=== PATIENT | female | born 1965 | race African-American/Black ===

== ENCOUNTER 2019-04-23 17:40 | Emergency (ER) | payer OTHER ==
[2019-04-23 17:47] VITALS: TEMP 98.4; BMI 51.2
[2019-04-23] MEDS ORDERED: ACETAMINOPHEN 1000 MG/100 ML VIAL (NON FORMULARY) IVPB ONE (18:35)
--- NOTE | 2019-04-23 18:38 | PDOC ---
History of Present Illness - General Chief Complaint: Pain Stated Complaint: WEAKNES,CRAMPS Time Seen by Provider: 04/23/19 18:11 - History of Present Illness Initial Comments: 53F PMH HTN c/o 2 days of cramping nonradiating constant lower abd pain worse w / urinating associated w/ nausea, nbnb vomiting, and PO intolerance. No f/c, cp/ sob, diarrhea, vaginal discharge. No prior abd surgeries, no recent abx. PCN allergy Past History - Past Medical History Allergies/Adverse Reactions: Allergies Allergy/AdvReac Type Severity Reaction Status Date / Time Penicillins Allergy Verified 04/23/19 17:47 COPD: No HTN: Yes Other medical history: ARTHRITIS - Psycho Social/Smoking Cessation Hx Smoking History: Current every day smoker Number of Cigarettes Smoked Daily: 5 Information on smoking cessation initiated: No Review of Systems - Review of Systems Able to Perform ROS?: Yes Comments:: CONSTITUTIONAL: Denies F / C HEENT: Denies headache, lightheadedness, dizziness, changes in vision / hearing RESP: Denies SOB CARD: Denies chest pain, palpitations GI: Endorses abd pain, n/v. Denies D, bloody stool : Denies dysuria, hematuria, frequency SKIN: Denies rashes NEURO: Denies numbness, tingling, weakness MSK: Denies back pain *Physical Exam - Vital Signs Last Vital Signs Temp Pulse Resp BP Pulse Ox 98.4 F 79 18 157/89 98 04/23/19 17:43 04/23/19 17:43 04/23/19 17:43 04/23/19 17:43 04/23/19 17:43 - Physical Exam GEN: NAD. AAOx3 HEENT: NC/AT. No facial asymmetry. Moist mucous membranes, upper dentures. Normal voice. Supple neck w/ FROM. CV: S1/S2, RRR, no m/r/g LUNG: CTAB, no wheezes, crackles, rales, rhonchi. GI: +TTP of the lower quadrants otherwise soft, nondistended, +BS, no guarding, no rebound. No masses. Neg CVAT b/l. EXTREMITIES: No obvious deformities of all extremities. SKIN: warm, dry, normal turgor PSYCH: normal mood and affect NEURO: Moving all extremities well. Ambulates w/ normal gait. ED Treatment Course - LABORATORY CBC & Chemistry Diagram: 04/23/19 19:15 04/23/19 19:15 Medical Decision Making - Medical Decision Making 04/23/19 18:35 53F c/o constant crampy nonradiating lower abdominal pain w/ n/v and po intolerance. - CBC, CMP, lipase - UA, UC, Preg - Zofran, pain ctrl, fluids 04/23/19 20:40 ALK Phos elevated Otherwise labs reassuring UA neg 04/23/19 21:42 pt refused PO challenge rpt abd exam pt states RLQ hurts more than every other area on palpation CT A/P 04/23/19 21:50 Informed by RN that pt is refusing medications 04/23/19 23:24 ED team involved in code, informed by RN that pt wanted to leave and could not wait. RN removed IV and pt left. 04/23/19 23:30 CT report shows dilated biliary system, recommended GI f/u Attempted to contact pt via phone numbers in system, no response. Eloped. Discharge - Discharge Information Problems reviewed: Yes Clinical Impression/Diagnosis: Abdominal pain Qualifiers: Abdominal location: unspecified location Qualified Code(s): R10.9 - Unspecified abdominal pain Condition: Unchanged/Unknown Disposition: ELOPED - Follow up/Referral Referrals: [facility] [place] Internal Med at [place] [Provider Group] - Patient Discharge Instructions Patient Printed Discharge Instructions: DI for Abdominal Pain-Adult Additional Instructions: Take tylenol for pain as directed by the label. Slowly start eating and drinking. Follow up with primary care in the next 7-14 days regarding your symptoms. We are referring you to the [facility] for primary care. You can call the number below to schedule an appointment. Return to the emergency department if you experience worsening symptoms, symptoms persisting for more than 3 days, inability to eat or drink, high fevers , anything that concerns you. - Post Discharge Activity
[2019-04-23] MEDS ORDERED: ONDANSETRON 4 MG/2 ML VIAL IVPUSH ONE (19:04)
[2019-04-23] MEDS ORDERED: FAMOTIDINE 20 MG/50 ML IVPB 20 MG/50 ML MG IVPB ONE ×2 (19:04→19:23)
[2019-04-23 19:22] LABS: PH,URINE 6.5 (5.0-8.0); URINE APPEARANCE CLEAR; URINE BILIRUBIN NEGATIVE (NEGATIVE); URINE COLOR YELLOW; URINE GLUCOSE (UA) NEGATIVE (NEGATIVE); URINE KETONE NEGATIVE (NEGATIVE); URINE LEUK ESTERASE NEGATIVE (NEGATIVE); URINE NITRITE NEGATIVE (NEGATIVE); URINE PROTEIN NEGATIVE (NEGATIVE)
[2019-04-23] MEDS ORDERED: ACETAMINOPHEN INJECTION 100 ML IVPB ONE (19:23)
[2019-04-23] MEDS ORDERED: ONDANSETRON 4 MG/2 ML VIAL ONE (19:23)
--- NOTE | 2019-04-23 19:23 | PDOC ---
Documentation entered by Zhanna Alonzo SCRIBE, acting as scribe for Anel Mallory DO. Anel Mallory DO: This documentation has been prepared by the lenore, Zhanna Alonzo SCRIBE, under my direction and personally reviewed by me in its entirety. I confirm that the documentation accurately reflects all work, treatment, procedures, and medical decision making performed by me. Attending Attestation - Resident Resident Name: Basil Pepe - ED Attending Attestation I have performed the following: I have examined & evaluated the patient, The case was reviewed & discussed with the resident, I agree w/resident's findings & plan, Exceptions are as noted - HPI HPI: 04/23/19 20:18 53yo female with hx of htn, arthritis with n/v/d since yesterday. Pt states subjective fevers at home. No rhinorrhea or sore throat. No cp/sob/cough. States cramping in her abd. Pt states her daughter is also sick with similar symptoms. Pt denies dysuria. Pt states vomitus was nbnb. Pt states she feels weak from not eating or drinking x 1 day. Pt denies abd distension. Pt ambulated into the ED and is nontoxic in appearance. - Physicial Exam PE: 04/23/19 19:18 Gen: aaox3, nad heart: +s1s2 reg lungs: cta b/l abd: soft, mild diffuse ttp, no rebound or guarding, obese ext: no c/c/e, ambulatory with a steady gait - Medical Decision Making 04/23/19 19:19 a/p: 53yo female with n/v/d since yesterday -daughter at home with similar symptoms -pt states 2 episodes nbnb vomitus -suspect viral syndrome -will send labs, hydrate, zofran, pepcid -will monitor and reassess -afebrile -pt is ambulatory in the ER -pt is nontoxic in appearance 04/23/19 20:18 labs reviewed no acute abnl 04/23/19 21:41 pt now with pain localized to RLQ will send for ct 04/23/19 23:25 pt left after the ct the nurse removed the iv and the patient walked out the patient was not discharged from the ER 04/23/19 23:26 mild intrahepatic ductal dilatation on the ct was seen 04/23/19 23:26 resident to call the patient to discuss ct findings 04/23/19 23:31 no answer at either number
[2019-04-23] MEDS: SODIUM CHLORIDE 0.9% 1000 ML INFUS.BAG IV ONE ×4 (19:29→21:52)
[2019-04-23 19:57] LABS: BASO % 0.8 % (0-2.0); EOS % 0.8 % (0-4.5); HEMATOCRIT 43.5 % (32.4-45.2); HEMOGLOBIN 14.3 GM/dL (10.7-15.3); LYMPH % 24.5 % (8-40); MCH 30.9 pg (25.7-33.7); MEAN CELL VOLUME 93.9 fl (80-96); NEUT % 67.9 % (42.8-82.8); PLATELET COUNT 285 K/MM3 (134-434); RBC 4.63 M/mm3 (3.60-5.2); RDW 13.3 % (11.6-15.6); WHITE BLOOD COUNT 7.9 K/mm3 (4.0-10.0)
[2019-04-23 20:14] LABS: ALBUMIN 3.5 g/dl (3.4-5.0); BILIRUBIN,TOTAL 0.2 mg/dL (0.2-1); CALCIUM 9.4 mg/dL (8.5-10.1); CREATININE 0.7 mg/dL (0.55-1.3); POTASSIUM 4.4 mmol/L (3.5-5.1); TOT PROT 8.3 g/dl (6.4-8.2)
[2019-04-23] MEDS ORDERED: HYOSCYAMINE SULFATE 0.125 MG *ODT PO ONE (21:36)
[2019-04-23] MEDS ORDERED: KETOROLAC TROMETHAMINE 15 MG/ML VIAL ONE (21:39)
[2019-04-23] MEDS: KETOROLAC TROMETHAMINE 15 MG/ML VIAL IVPUSH ONE ×2 (21:43→21:50)
[2019-04-24 05:27] VITALS: BP 153/82; PULSE 73
== END 2019-04-23 23:36 | disposition left against medical advice (07) ==
LOC: JER 17:40
PROC: 3E033GC Introduction of Other Therapeutic Substance into Peripheral Vein, Percutaneous Approach (ICD-10-PCS; principal; 2019-04-23)
PROC: 3E033NZ Introduction of Analgesics, Hypnotics, Sedatives into Peripheral Vein, Percutaneous Approach (ICD-10-PCS; 2019-04-23)
PROC: 3E033GC Introduction of Other Therapeutic Substance into Peripheral Vein, Percutaneous Approach (ICD-10-PCS; 2019-04-23)
DX: R10.9 Unspecified abdominal pain (principal); F17.210 Nicotine dependence, cigarettes, uncomplicated; Z88.0 Allergy status to penicillin
CPT/HCPCS: 36415; 74177-TC; 80053; 81003; 82550; 83690; 84484; 84703; 85025; 87086; 99283-25; J0131; J7030; Q9967

== ENCOUNTER 2019-05-10 18:52 | Emergency (ER) | payer OTHER ==
[2019-05-10 19:08] VITALS: BP 192/89; PULSE 68; TEMP 98.5; BMI 34.5
[2019-05-10] MEDS ORDERED: SODIUM CHLORIDE 1,000 ML IV STA (19:51)
[2019-05-10] MEDS ORDERED: FAMOTIDINE 20 MG/50 ML IVPB 20 MG/50 ML MG IVPB ONE ×2 (19:51→21:04)
[2019-05-10] MEDS ORDERED: DICYCLOMINE HCL 20 MG TABLET PO ONE (19:51)
[2019-05-10] MEDS ORDERED: ONDANSETRON 4 MG/2 ML VIAL IVPUSH ONE (19:52)
--- NOTE | 2019-05-10 19:58 | PDOC ---
History of Present Illness - General Chief Complaint: Pain Stated Complaint: VOMITING Time Seen by Provider: 05/10/19 19:38 History Source: Patient Exam Limitations: No Limitations - History of Present Illness Initial Comments: 05/10/19 19:53 Patient is a 53-year-old female with a history of hypertension who presents to the ED with nausea, vomiting and diarrhea since yesterday. 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 She does admit to getting a flu shot this year. She states she has abdominal cramping and watery, nonbloody diarrhea. She has had 2 episodes of diarrhea today and 2 yesterday. She has had several episodes of nonbloody vomitus. She denies any fevers or chills. She does feel body aches and malaise. She has not taken anything for her symptoms. 05/10/19 19:57 Of note: The patient states she did take her blood pressure medicine today but believes she vomited it up today. She denies any chest pain or shortness of breath. Past History - Past Medical History Allergies/Adverse Reactions: Allergies Allergy/AdvReac Type Severity Reaction Status Date / Time Penicillins Allergy Verified 04/23/19 17:47 COPD: No HTN: Yes - Psycho Social/Smoking Cessation Hx Smoking History: Former smoker Have you smoked in the past 12 months: Yes Number of Cigarettes Smoked Daily: 5 Information on smoking cessation initiated: No Hx Alcohol Use: No Drug/Substance Use Hx: No Review of Systems - Review of Systems Comments:: 05/10/19 19:54 - Review of Systems Able to Perform ROS?: Yes Constitutional: No: Fever, Chills, Loss of Appetite, Night Sweats, Weakness; Positive malaise HEENTM: No: Eye Pain, Vision changes, Ear Pain, Throat Pain, Throat Swelling, Mouth Pain, Difficulty Swallowing Respiratory: No: Cough, Shortness of Breath, Wheezing, Sputum Production Cardiac (ROS): No: Chest Pain, Chest Tightness, Palpitations, Irregular Heart Beat, Edema ABD/GI: Positive: Nausea, Vomiting, Abdominal Pain, Diarrhea : No Dysuria, No Hematuria, No Frequency, No Urgency Musculoskeletal: No: Back Pain, Joint Pain, Muscle Weakness, Neck Pain; + Muscle Pain Integumentary: No: Lesions, Rash Neurological: No: Headache, Numbness, Tingling, Weakness, Speech Difficulties *Physical Exam - Vital Signs Last Vital Signs Temp Pulse Resp BP Pulse Ox 98.5 F 68 19 192/89 H 98 05/10/19 19:04 05/10/19 19:04 05/10/19 19:04 05/10/19 19:04 05/10/19 19:04 - Physical Exam 05/10/19 19:55 - Physical Exam General Appearance: Nourished, Appropriately Dressed, No Distress HEENT: EOMI, Normal Voice, No Pharyngeal Erythema, No Muffled/Hoarse voice, No Tonsillar Exudate, No Tonsillar Erythema, No Nasal Congestion, No Rhinorrhea, Hearing Grossly Normal, Moist oral mucosa Neck: Supple, No Lymphadenopathy (R), No Lymphadenopathy (L), No Rigidity, No Decreased range of motion Respiratory/Chest: Lungs Clear, Normal Breath Sounds. No Respiratory Distress, No Accessory Muscle Use Cardiovascular: Regular Rhythm, Regular Rate, S1, S2 Gastrointestinal/Abdominal: Mild hyperactive bowel sounds, Soft. Mild diffuse tenderness, No Guarding, No Rebound, No Rigidity Musculoskeletal: Normal Inspection. No Decreased Range of Motion Extremity: Normal Capillary Refill, Normal Inspection Integumentary: Normal Color, Dry. 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 An influenza swab has also been sent. 05/10/19 21:31 Pt states that she is starting to feel a little bit better. She is currently drinking some water as a fluid challenge. The patient has been made aware that she appears to have a viral syndrome. 05/10/19 21:51 The patient is feeling much better after her fluids and medications. She has been made aware that she has a viral syndrome. She should follow-up with her primary doctor within 1 to 2 days for repeat evaluation. She should get plenty of rest and drink plenty of fluids. She should eat a bland diet for the next several days. She understands and agrees with this treatment and plan and she is stable for discharge. Discharge - Discharge Information Problems reviewed: Yes Clinical Impression/Diagnosis: Gastroenteritis Condition: Stable Disposition: HOME - Follow up/Referral Referrals: [facility] [place] Internal Med at [place] [Provider Group] - Patient Discharge Instructions Patient Printed Discharge Instructions: DI for Viral Gastroenteritis -- Adult, [place] Diet Additional Instructions: Get plenty of rest and drink plenty of fluids. Eat a bland diet. Be sure to follow up with your primary doctor within 1-2 days for repeat evaluation. Your blood sugar was mildly high and this should be rechecked as you may have to be evaluated for diabetes. Return to the ED for any worsening symptoms. - Post Discharge Activity Work/Back to School Note: Back to Work
[2019-05-10] MEDS ORDERED: ONDANSETRON 4 MG/2 ML VIAL ONE (20:01)
[2019-05-10] MEDS ORDERED: DICYCLOMINE HCL 10 MG CAPSULE ONE (20:01)
[2019-05-10] MEDS ORDERED: DICYCLOMINE HCL 20 MG/2 ML AMPUL IM ONE (20:21)
[2019-05-10 20:33] LABS: BASO % 0.9 % (0-2.0); EOS % 1.2 % (0-4.5); HEMATOCRIT 39.3 % (32.4-45.2); HEMOGLOBIN 13.3 GM/dL (10.7-15.3); LYMPH % 22.9 % (8-40); MCH 31.7 pg (25.7-33.7); MCHC 33.9 g/dl (32.0-36.0); MEAN CELL VOLUME 93.6 fl (80-96); MEAN PLT VOLUME 8.4 fl (7.5-11.1); MONO % 5.9 % (3.8-10.2); NEUT % 69.1 % (42.8-82.8); PLATELET COUNT 215 K/MM3 (134-434); RDW 13.1 % (11.6-15.6); WHITE BLOOD COUNT 7.6 K/mm3 (4.0-10.0)
[2019-05-10 21:00] LABS: ALBUMIN 3.2 g/dl (3.4-5.0); BILIRUBIN,TOTAL 0.2 mg/dL (0.2-1); BLOOD UREA NITROGEN 8.6 mg/dL (7-18); CALCIUM 8.8 mg/dL (8.5-10.1); CREATININE 0.7 mg/dL (0.55-1.3); POTASSIUM 4.1 mmol/L (3.5-5.1); TOT PROT 7.7 g/dl (6.4-8.2)
[2019-05-10 21:25] LABS: PH,URINE 7.5 (5.0-8.0); URINE APPEARANCE CLEAR; URINE BILIRUBIN NEGATIVE (NEGATIVE); URINE COLOR YELLOW; URINE GLUCOSE (UA) NEGATIVE (NEGATIVE); URINE KETONE NEGATIVE (NEGATIVE); URINE LEUK ESTERASE NEGATIVE (NEGATIVE); URINE NITRITE NEGATIVE (NEGATIVE); URINE PROTEIN NEGATIVE (NEGATIVE)
== END 2019-05-10 22:39 | disposition home or self-care (01) ==
LOC: JER 18:52
PROC: 3E0337Z Introduction of Electrolytic and Water Balance Substance into Peripheral Vein, Percutaneous Approach (ICD-10-PCS; principal; 2019-05-10)
PROC: 3E033GC Introduction of Other Therapeutic Substance into Peripheral Vein, Percutaneous Approach (ICD-10-PCS; 2019-05-10)
PROC: 3E033GC Introduction of Other Therapeutic Substance into Peripheral Vein, Percutaneous Approach (ICD-10-PCS; 2019-05-10)
PROC: 3E023GC Introduction of Other Therapeutic Substance into Muscle, Percutaneous Approach (ICD-10-PCS; 2019-05-10)
DX: K52.9 Noninfective gastroenteritis and colitis, unspecified (principal); I10 Essential (primary) hypertension; Z88.0 Allergy status to penicillin; Z87.891 Personal history of nicotine dependence
CPT/HCPCS: 36415; 80053; 81003; 83690; 85025; 87804; 96361; 96365; 96372; 96375; 99282-25; J7030

== ENCOUNTER 2019-05-24 09:44 | Emergency (ER) | payer OTHER ==
[2019-05-24 09:50] VITALS: BMI 34.5
[2019-05-24] MEDS ORDERED: ACETAMINOPHEN 1000 MG/100 ML VIAL (NON FORMULARY) IVPB ONE (10:22)
[2019-05-24] MEDS ORDERED: DICYCLOMINE HCL 20 MG TABLET PO ONE (10:22)
[2019-05-24] MEDS ORDERED: LACTATED RINGERS SOLUTION 1,000 ML IV STA (10:22)
[2019-05-24] MEDS ORDERED: FAMOTIDINE 20 MG/50 ML IVPB 20 MG/50 ML MG IVPB ONE ×2 (10:22→11:23)
--- NOTE | 2019-05-24 10:23 | PDOC ---
Documentation entered by Avelino Browne SCRIBE, acting as scribe for Estee Byrd MD. Estee Byrd MD: This documentation has been prepared by the Hollie grover Nirvannie, SCRIBE, under my direction and personally reviewed by me in its entirety. I confirm that the documentation accurately reflects all work, treatment, procedures, and medical decision making performed by me. History of Present Illness - General Chief Complaint: Nausea/Vomiting Stated Complaint: Ingestion/HYPTENSION Time Seen by Provider: 05/24/19 10:06 History Source: Patient Exam Limitations: No Limitations - History of Present Illness Initial Comments: 05/24/19 10:20 HPI 53 YOF with h/o HTN and osteoporosis presenting with diffuse abdominal cramping , n/v/d x 2 days beginning Saturday after eating seafood at friend's place. pt describes multiple episodes of brown watery/loose stools per day with nausea/ NBNB emesis with food intake. +subjective fevers about 2 days ago, otherwise has not taken temperature. another friend who consumed same seafood also similarly sick Denies fever, chills, chest pain, SOB, palpitation, dizziness, weakness, bladder and bowel problems, focal weakness/paresthesias, leg swelling/pain, rash. No new changes in medications. no meds taken Allergies: PCN Past Medical History: osteoporosis, HTN PSH: none Social history: Lives with family. No tobacco, ETOH or drug use. Meds: as documented in EMR Family history: noncontributory Review of systems Constitutional: +subjective fevers +generalized weakness HEENT: no headache or dizziness. No congestion. No visual/hearing disturbances. CVS: no cp or syncope. Resp: no sob. No cough. Gastrointestinal: +abdominal pain, nausea, vomiting, diarrhea. Genitourinary: no urinary sx, hematuria. no urgency/frequency. MUSCULOSKELETAL: No joint pain and swelling. No neck or back pain. SKIN: no redness or skin changes, no discharge, no rash. No wounds. Hematologic: no easy bruising/bleeding. NEUROLOGIC: No headache, dizziness, LOC or altered mental status. No weakness, numbness or tingling. Allergic/Immunologic: pcn allergies All other systems reviewed and negative, or as documented in HPI. Physical exam General: Well appearing, awake and alert, NAD. HEENT: NCAT, PERRL, EOMI, clear conjunctiva, anicteric, moist mucus membranes, clear oropharynx, no oral lesions.. Neck: neck supple, FROM Resp: CTAB, normal and even respirations, no respiratory distress CVS: RRR, no murmurs, 2+ peripheral pulses throughout, no peripheral edema Abdomen: soft, +suprapubic /periumbilical TTP, no rebound or guarding. No CVAT. Back: nontender, normal inspection and ROM MSK: no edema, JOSÉ x4, ROM intact. No clubbing or cyanosis. normal bulk and tone. Extremities: no calf tenderness Neuro: alert, oriented appropriately; no focal neurologic deficits Psych: Calm and cooperative Skin: warm and well perfused, cap refill <2 sec, normal color 05/24/19 10:29 Past History - Past Medical History Allergies/Adverse Reactions: Allergies Allergy/AdvReac Type Severity Reaction Status Date / Time Penicillins Allergy Verified 05/24/19 09:46 Home Medications: Ambulatory Orders Amlodipine Besylate [Norvasc -] 10 mg PO DAILY 05/24/19 Ondansetron HCl [Zofran] 4 mg PO TID PRN #9 tablet 05/24/19 Valsartan 160 mg PO DAILY 05/24/19 COPD: No HTN: Yes - Psycho Social/Smoking Cessation Hx Smoking History: Unknown if ever smoked Have you smoked in the past 12 months: Yes Number of Cigarettes Smoked Daily: 5 Hx Alcohol Use: No Drug/Substance Use Hx: No *Physical Exam - Vital Signs Last Vital Signs Temp Pulse Resp BP Pulse Ox 98 F 59 L 18 182/109 H 100 05/24/19 09:47 05/24/19 09:47 05/24/19 09:47 05/24/19 09:47 05/24/19 09:47 Heart Score/ECG Review #1 ECG reviewed & interpreted by me at: 10:00 General ECG Interpretation: Sinus Rhythm, Normal Rate, Normal Intervals 05/24/19 10:25 EKG normal sinus rhythm at 57 bpm, no interval abnormalities, narrow QRS, ST and T wave segments and morphology normal. Nonspecific T wave abnormalities ED Treatment Course - LABORATORY CBC & Chemistry Diagram: 05/24/19 10:50 05/24/19 10:50 Medical Decision Making - Medical Decision Making 05/24/19 10:25 Vital Signs Temp Pulse Resp BP Pulse Ox 98 F 59 L 18 182/109 H 100 05/24/19 09:47 05/24/19 09:47 05/24/19 09:47 05/24/19 09:47 05/24/19 09:47 vitals reviewed, Hypertensive, 182/109. missed am dose, will provide afebrile, DDx abdominal pain: Renal colic, biliary colic, metabolic/electrolyte derangements. GERD, PUD, esophageal spasm, pancreatitis, hepatitis, constipation , colitis, gastroenteritis, cholecystitis, UTI, pyelonephritis, ileus, SBO, medication side effect, hernia, appendicitis, diverticulitis, msk strain, mesenteric adenitis no recent abx. nontoxic, no systemic features. no bloody stools doubt C diff likely food poisoning with suspicious food intake. no RLQ tenderness, no peritoneal findings. so doubt appy or diverticulitis no RUQ pain doubt renal/colic pathology, not colicky no CVAT pt given maalox, zofran, IVF, hydration, bentyl for abdominal cramping/spasms, pepcid, reassess pt declines bentyl and maalox 05/24/19 10:28 05/24/19 12:45 - feels much improved, abdomen soft, nontender. - labs and lytes wnl, normal LFTs/lipase. UA neg for infection, glucose/protein or bili. - supportive care, hydration, zofran prn for n/v. repeat VS normalizing, BP improved 161/92. normal HR, afebrile, T 98.2 pt missed amlodipine this morning told to resume at home today. Pt to be discharged in stable condition. Patient made aware of clinical impression, treatment recommendations and disposition plan, return precautions discussed (including but not limited to new or persistent/worsening symptoms, pain, fevers, or signs of infection, chest pain, respiratory distress, inability to tolerate oral intake, dehydration, syncope, or neurologic changes) . Follow up with PMD as recommended, follow up information provided, take medications as instructed for duration of time. continue with supportive care, avoid triggers and precipitants. All questions answered to patient's satisfaction and expressed understanding and comfort with this. At the time of discharge, the patient is alert, clinically improved, tolerating po and verbalizes understanding of instructions, satisfied with the care received and felt comfortable with the plan. Patient does not suffer from an acute life- threatening medical condition at this time and is safe for outpatient follow- up. Discharge - Discharge Information Problems reviewed: Yes Clinical Impression/Diagnosis: Nausea vomiting and diarrhea Condition: Good Disposition: HOME - Admission No - Additional Discharge Information Prescriptions: Ondansetron HCl [Zofran] 4 mg PO TID PRN #9 tablet PRN Reason: nausea, vomiting - Follow up/Referral Referrals: [facility] [place] Internal Med at [place] [Provider Group] [facility] [Provider Group] - Patient Discharge Instructions Patient Printed Discharge Instructions: Diarrhea, DI for Vomiting -- Adult, DI for Nausea -- Adult, [place] Diet Additional Instructions: you should follow up with primary care doctor and resume your home medications. your laboratory work here were within normal limits this is likely a viral illness/food poisoning. you will be prescribed an anti-nausea drug called zofran every 8 hours as needed for nausea/vomiting You should return to the hospital if you experience return of persistent nausea and vomiting that does not resolve and does not allow you to tolerate any food or fluids, persistent fevers for greater than 2-3 more days, increasing abdominal pain that persists despite medications, persistent diarrhea, dizziness , syncope (fainting), or for any other concerns. For more information about how to make your own rehydration solution if you experience diarrhea/vomiting please visit: [email or web address] SEEK MEDICAL CARE IF: Your symptoms fail to improve after a week or two of the new treatment. You experience continued weight loss. You have ongoing crampy digestion or loose bowels. You develop a new skin rash, skin sores, or eye problems. SEEK IMMEDIATE MEDICAL CARE IF: You have worsening of your symptoms or develop new symptoms. You have an oral temperature above 100.4, not controlled by medicine. You develop bloody diarrhea. You have severe abdominal pain. - Post Discharge Activity Work/Back to School Note: Back to Work
[2019-05-24] MEDS ORDERED: MAG HYDROX/AL HYDROX/SIMETH 30 ML UNIT-DOSE CUP PO ONE (10:24)
[2019-05-24] MEDS ORDERED: ONDANSETRON 4 MG/2 ML VIAL IVPUSH ONE (10:31)
[2019-05-24] MEDS ORDERED: ACETAMINOPHEN INJECTION 100 ML IVPB ONE (10:40)
[2019-05-24] MEDS ORDERED: MAG HYDROX/AL HYDROX/SIMETH 30 ML UNIT-DOSE CUP ONE (10:40)
[2019-05-24] MEDS ORDERED: DICYCLOMINE HCL 10 MG CAPSULE ONE (10:40)
[2019-05-24] MEDS ORDERED: ONDANSETRON 4 MG/2 ML VIAL ONE (10:41)
[2019-05-24 11:20] LABS: EOS % 2.3 % (0-4.5); HEMATOCRIT 39.6 % (32.4-45.2); HEMOGLOBIN 13.4 GM/dL (10.7-15.3); LYMPH % 33.4 % (8-40); MCH 31.5 pg (25.7-33.7); MCHC 33.9 g/dl (32.0-36.0); MEAN CELL VOLUME 92.8 fl (80-96); MEAN PLT VOLUME 8.7 fl (7.5-11.1); MONO % 8.2 % (3.8-10.2); NEUT % 55.1 % (42.8-82.8); PLATELET COUNT 239 K/MM3 (134-434); RBC 4.27 M/mm3 (3.60-5.2); RDW 13.2 % (11.6-15.6)
--- NOTE | 2019-05-24 12:19 | EKG ---
Test Reason : Blood Pressure : / mmHG Vent. Rate : 057 BPM Atrial Rate : 057 BPM P-R Int : 158 ms QRS Dur : 078 ms QT Int : 450 ms P-R-T Axes : 069 037 041 degrees QTc Int : 438 ms SINUS BRADYCARDIA WITH SINUS ARRHYTHMIA POSSIBLE LEFT ATRIAL ENLARGEMENT NO PREVIOUS ECGS AVAILABLE Confirmed by INDIO STOVER MD ([id number]) on 05/24/2019 12:19:04 PM Referred By: Confirmed By:INDIO STOVER MD
[2019-05-24 12:20] LABS: POTASSIUM 4.2 mmol/L (3.5-5.1)
[2019-05-24 12:21] LABS: ALBUMIN 3.1 g/dl (3.4-5.0); CALCIUM 9.2 mg/dL (8.5-10.1)
[2019-05-24 12:22] LABS: URINE APPEARANCE Clear; URINE BILIRUBIN Negative (NEGATIVE); URINE COLOR Yellow; URINE GLUCOSE (UA) Negative (NEGATIVE); URINE KETONE Negative (NEGATIVE); URINE LEUK ESTERASE Negative (NEGATIVE); URINE NITRITE Negative (NEGATIVE); URINE PROTEIN Negative (NEGATIVE); URINE UROBILINOGEN 0.2 mg/dL (0.2-1.0)
[2019-05-24 12:24] LABS: BILIRUBIN,TOTAL 0.3 mg/dL (0.2-1); CREATININE 0.6 mg/dL (0.55-1.3); TOT PROT 7.6 g/dl (6.4-8.2)
[2019-05-24 12:26] LABS: BLOOD UREA NITROGEN 8.8 mg/dL (7-18)
[2019-05-24 12:50] VITALS: BP 161/92; PULSE 55; TEMP 98.2
== END 2019-05-24 13:02 | disposition home or self-care (01) ==
LOC: JER 09:44
PROC: 3E033GC Introduction of Other Therapeutic Substance into Peripheral Vein, Percutaneous Approach (ICD-10-PCS; principal; 2019-05-24)
PROC: 3E033GC Introduction of Other Therapeutic Substance into Peripheral Vein, Percutaneous Approach (ICD-10-PCS; 2019-05-24)
PROC: 3E033NZ Introduction of Analgesics, Hypnotics, Sedatives into Peripheral Vein, Percutaneous Approach (ICD-10-PCS; 2019-05-24)
DX: R11.2 Nausea with vomiting, unspecified (principal); R19.7 Diarrhea, unspecified
CPT/HCPCS: 36415; 80053; 81003; 83690; 84703; 85025; 93005; 93010; 96365; 96375; 99284-25; J0131

== ENCOUNTER 2019-05-29 07:43 | Emergency (ER) | payer OTHER ==
[2019-05-29 07:54] VITALS: BMI 49.4
[2019-05-29] MEDS ORDERED: FAMOTIDINE 20 MG/50 ML IVPB 20 MG/50 ML MG IVPB ONE (08:15)
[2019-05-29] MEDS ORDERED: SODIUM CHLORIDE 1,000 ML IV STA (08:15)
--- NOTE | 2019-05-29 08:16 | PDOC ---
History of Present Illness - General Chief Complaint: Pain Stated Complaint: ABD PAIN Time Seen by Provider: 05/29/19 08:14 History Source: Patient Exam Limitations: No Limitations - History of Present Illness Initial Comments: 05/29/19 08:52 CHIEF COMPLAINT: Abdominal pain HISTORY OF PRESENT ILLNESS: This is a 53-year-old female with a history of hypertension on amlodipine who presents complaining of 2 days of lower abdominal cramping, vomiting, and diarrhea. Pain is cramping in character and constant. She denies hematemesis or hematochezia. She has had subjective fever. Of note, prior to onset of symptoms, patient ate at a restaurant with another friend who has the same symptoms. She denies chest pain, shortness of breath, or any other symptoms. Vital signs on arrival are notable for blood pressure 173/86- patient states she has been unable to keep down her medication. Allergies: PCN ("high blood pressure") REVIEW OF SYSTEMS: GENERAL/CONSTITUTIONAL: Subjective fever. No weakness. No weight change. HEAD, EYES, EARS, NOSE AND THROAT: No change in vision. No ear pain or discharge. No sore throat. CARDIOVASCULAR: No chest pain or palpitations. RESPIRATORY: No cough, wheezing, or shortness of breath. GASTROINTESTINAL: See HPI. GENITOURINARY: No dysuria, frequency, or change in urination. MUSCULOSKELETAL: No joint or muscle swelling or pain. No neck or back pain. SKIN: No rash or easy bruising. NEUROLOGIC: No headache, vertigo, loss of consciousness, or loss of sensation. PSYCHIATRIC: No depression or anxiety. ENDOCRINE: No increased thirst. No abnormal weight change. HEMATOLOGIC/LYMPHATIC: No anemia, easy bleeding, or history of blood clots. ALLERGIC/IMMUNOLOGIC: No hives or skin allergy. No latex allergy. PHYSICAL EXAM: GENERAL: The patient is awake, alert, and fully oriented, in some distress secondary to pain. HEAD: Normal with no signs of trauma. ENT: Pupils equal, round and reactive to light, extraocular movements intact, sclera anicteric, conjunctiva clear. Neck supple. LUNGS: Clear to auscultation bilaterally. Normal excursion. No respiratory distress or use of accessory muscles. CV: RRR, S1/S2, no MRG. Cap refill < 2 sec. ABDOMEN: Soft, non-distended, mild tenderness to deep palpation RLQ and LLQ. EXTREMITIES: Normal range of motion, no edema. NEUROLOGICAL: Normal speech, normal gait. CN II-XII grossly intact. PSYCH: Normal mood, normal affect. SKIN: Warm, dry, normal turgor, no rashes or lesions noted. Past History - Past Medical History Allergies/Adverse Reactions: Allergies Allergy/AdvReac Type Severity Reaction Status Date / Time Penicillins Allergy Verified 05/29/19 07:51 Home Medications: Ambulatory Orders Amlodipine Besylate [Norvasc -] 5 mg PO DAILY 05/24/19 Famotidine [Pepcid] 20 mg PO DAILY #30 tablet 05/29/19 Ondansetron [Zofran *Odt*] 4 mg SL TID PRN #21 od.tablet 05/29/19 COPD: No HTN: Yes - Psycho Social/Smoking Cessation Hx Smoking History: Never smoked Have you smoked in the past 12 months: Yes Number of Cigarettes Smoked Daily: 5 Hx Alcohol Use: No Drug/Substance Use Hx: No *Physical Exam - Vital Signs Last Vital Signs Temp Pulse Resp BP Pulse Ox 99.0 F 68 16 173/86 H 100 05/29/19 07:51 05/29/19 07:51 05/29/19 07:51 05/29/19 07:51 05/29/19 07:51 ED Treatment Course - LABORATORY CBC & Chemistry Diagram: 05/29/19 08:20 05/29/19 08:20 Medical Decision Making - Medical Decision Making 05/29/19 09:10 A/P: 53-year-old female with abdominal pain, vomiting, and diarrhea. Given sick contact with, and restaurant usage, suspect gastroenteritis. Differential also includes diverticulitis and other intra-abdominal pathologies. 1. Labs including CBC, CMP, lipase, UA 2. Normal saline for hydration, Zofran for nausea 3. Patient refuses EKG WBC is within normal limits at 7.6. Chemistry and lipase unremarkable. Patient reevaluated and complains of improved but persistent lower abdominal cramping Toradol 30mg IVP ordered 05/29/19 10:44 Patient re-evaluated, feels better, tolerating PO Given that this is 3rd presentation in 1 month, recommended CT scan - pt refuses States she will follow up with PCP at 06/12 appt Refuses Norvasc here - states will take at home Discharge - Discharge Information Problems reviewed: Yes Clinical Impression/Diagnosis: Vomiting and diarrhea Condition: Improved Disposition: HOME - Admission No - Additional Discharge Information Prescriptions: Famotidine [Pepcid] 20 mg PO DAILY #30 tablet Ondansetron [Zofran *Odt*] 4 mg SL TID PRN #21 od.tablet PRN Reason: Nausea - Follow up/Referral Referrals: Char Delcid MD [Primary Care Provider] - 14 days - Patient Discharge Instructions Patient Printed Discharge Instructions: [place] Diet, DI for Viral Gastroenteritis -- Adult Additional Instructions: -you were offered CT scan today as this is your 3rd ER visit in 1 month for vomiting/diarrhea -please follow up with your primary care doctor as scheduled and discuss your symptoms and next steps -you are being prescribed Zofran for nausea and Pepcid for abdominal discomfort -rest and drink plenty of fluids -slowly start eating a bland diet (instructions enclosed) until you feel better -return here for worsening pain, inability to keep down fluids, or any other concerning symptoms - Post Discharge Activity
--- NOTE | 2019-05-29 08:18 | PDOC ---
History of Present Illness - General Chief Complaint: Pain Stated Complaint: ABD PAIN Time Seen by Provider: 05/29/19 08:14 History Source: Patient Exam Limitations: No Limitations - History of Present Illness Initial Comments: 05/29/19 08:17 HPI 53 YOF with h/o HTN and osteoporosis presenting with diffuse abdominal cramping , n/v/d x 2 days beginning Saturday after eating seafood at friend's place. pt describes multiple episodes of brown watery/loose stools per day with nausea/ NBNB emesis with food intake. +subjective fevers about 2 days ago, otherwise has not taken temperature. seen on 05/24/19 and dx'd with likely food poisoning with consumed seafood and sick contacts seen also on 05/10/19 for similar sx, told likely gastroenteritis Denies fever, chills, chest pain, SOB, palpitation, dizziness, weakness, bladder and bowel problems, focal weakness/paresthesias, leg swelling/pain, rash. No new changes in medications. no meds taken Allergies: PCN Past Medical History: osteoporosis, HTN PSH: none Social history: Lives with family. No tobacco, ETOH or drug use. Meds: as documented in EMR Family history: noncontributory Review of systems Constitutional: +subjective fevers +generalized weakness HEENT: no headache or dizziness. No congestion. No visual/hearing disturbances. CVS: no cp or syncope. Resp: no sob. No cough. Gastrointestinal: +abdominal pain, nausea, vomiting, diarrhea. Genitourinary: no urinary sx, hematuria. no urgency/frequency. MUSCULOSKELETAL: No joint pain and swelling. No neck or back pain. SKIN: no redness or skin changes, no discharge, no rash. No wounds. Hematologic: no easy bruising/bleeding. NEUROLOGIC: No headache, dizziness, LOC or altered mental status. No weakness, numbness or tingling. Allergic/Immunologic: pcn allergies All other systems reviewed and negative, or as documented in HPI. Physical exam General: Well appearing, awake and alert, NAD. HEENT: NCAT, PERRL, EOMI, clear conjunctiva, anicteric, moist mucus membranes, clear oropharynx, no oral lesions.. Neck: neck supple, FROM Resp: CTAB, normal and even respirations, no respiratory distress CVS: RRR, no murmurs, 2+ peripheral pulses throughout, no peripheral edema Abdomen: soft, +suprapubic /periumbilical TTP, no rebound or guarding. No CVAT. Back: nontender, normal inspection and ROM MSK: no edema, JOSÉ x4, ROM intact. No clubbing or cyanosis. normal bulk and tone. Extremities: no calf tenderness Neuro: alert, oriented appropriately; no focal neurologic deficits Psych: Calm and cooperative Skin: warm and well perfused, cap refill <2 sec, normal color Past History - Past Medical History Allergies/Adverse Reactions: Allergies Allergy/AdvReac Type Severity Reaction Status Date / Time Penicillins Allergy Verified 05/29/19 07:51 Home Medications: Ambulatory Orders Amlodipine Besylate [Norvasc -] 10 mg PO DAILY 05/24/19 Ondansetron HCl [Zofran] 4 mg PO TID PRN #9 tablet 05/24/19 Valsartan 160 mg PO DAILY 05/24/19 COPD: No HTN: Yes - Psycho Social/Smoking Cessation Hx Smoking History: Never smoked Have you smoked in the past 12 months: Yes Number of Cigarettes Smoked Daily: 5 Hx Alcohol Use: No Drug/Substance Use Hx: No *Physical Exam - Vital Signs Last Vital Signs Temp Pulse Resp BP Pulse Ox 99.0 F 68 16 173/86 H 100 05/29/19 07:51 05/29/19 07:51 05/29/19 07:51 05/29/19 07:51 05/29/19 07:51
[2019-05-29] MEDS ORDERED: ONDANSETRON 4 MG/2 ML VIAL IVPUSH ONE (08:29)
[2019-05-29] MEDS ORDERED: ONDANSETRON 4 MG/2 ML VIAL ONE (08:32)
[2019-05-29 08:49] LABS: BASO % 0.9 % (0-2.0); EOS % 0.4 % (0-4.5); HEMATOCRIT 41.6 % (32.4-45.2); HEMOGLOBIN 14.2 GM/dL (10.7-15.3); LYMPH % 18.6 % (8-40); MCH 31.4 pg (25.7-33.7); MCHC 34.1 g/dl (32.0-36.0); MEAN CELL VOLUME 92.1 fl (80-96); MEAN PLT VOLUME 8.4 fl (7.5-11.1); MONO % 5.3 % (3.8-10.2); NEUT % 74.8 % (42.8-82.8); PLATELET COUNT 231 K/MM3 (134-434); RBC 4.51 M/mm3 (3.60-5.2); RDW 12.8 % (11.6-15.6); WHITE BLOOD COUNT 7.6 K/mm3 (4.0-10.0)
[2019-05-29] MEDS ORDERED: morphine CARPU-JECT 4 MG/1 ML DISP.SYRIN IVPUSH ONE (09:09)
[2019-05-29 09:11] LABS: ALBUMIN 3.5 g/dl (3.4-5.0); BILIRUBIN,TOTAL 0.4 mg/dL (0.2-1); BLOOD UREA NITROGEN 8.9 mg/dL (7-18); CALCIUM 9.4 mg/dL (8.5-10.1); CREATININE 0.7 mg/dL (0.55-1.3); POTASSIUM 3.8 mmol/L (3.5-5.1); TOT PROT 8.3 g/dl (6.4-8.2)
[2019-05-29] MEDS ORDERED: KETOROLAC TROMETHAMINE 30 MG/1 ML VIAL IVPUSH ONE (09:26)
[2019-05-29] MEDS ORDERED: KETOROLAC TROMETHAMINE 30 MG/1 ML VIAL ONE (09:36)
[2019-05-29] MEDS ORDERED: amLODIPine BESYLATE 5 MG TABLET (FP) ONE (11:05)
[2019-05-29] MEDS: amLODIPine BESYLATE 5 MG TABLET (FP) PO ONE ×2 (11:06→11:14)
[2019-05-29 11:15] VITALS: BP 169/89; PULSE 80; TEMP 98
== END 2019-05-29 11:17 | disposition home or self-care (01) ==
LOC: JER 07:43
PROC: 3E033GC Introduction of Other Therapeutic Substance into Peripheral Vein, Percutaneous Approach (ICD-10-PCS; principal; 2019-05-29)
DX: R11.10 Vomiting, unspecified (principal); R19.7 Diarrhea, unspecified; Z88.0 Allergy status to penicillin; I10 Essential (primary) hypertension
CPT/HCPCS: 36415; 80053; 83690; 85025; 96365; 96375; 99283-25; J7030